=== PATIENT | female | born 1935 | race African-American/Black ===

== ENCOUNTER 2017-05-07 21:18 | Emergency (ER) | payer OTHER ==
[~2017-05-07] VITALS: Ht 167.6 cm; Wt 68.9 kg
[~2017-05-07 21:18] MED LIST: Acetaminophen PO; HUM7525 SUBQ; LACT10SO1 PO; LINA145C PO; NIFE30TE8 PO; NITR0.4T1 SL; OMEP40EC1 PO; TRAM50TA1 PO; [UNRECOGNIZED DRUG - CODE] SC
[2017-05-07 21:24] VITALS: BP 194/81
[2017-05-07 21:34] VITALS: BP 194/81
--- NOTE | 2017-05-07 23:17 | NUR ---
PATIENT LEFT WITHOUT BEING SEEN BY DR. ROJAS. NO FURTHER CARE PROVIDED FOR PATIENT.
== END 2017-05-07 23:17 | disposition left against medical advice (07) ==
LOC: MED 21:18
DX: R07.9 Chest pain, unspecified (principal); Z53.21 Procedure and treatment not carried out due to patient leaving prior to being seen by health care provider
CPT/HCPCS: 93005; 99281